=== PATIENT | female | born 1945 | race Caucasian/White ===

== ENCOUNTER → 2017-10-17 | Outpatient (CLI) | payer MEDICARE ==
[~2017-10-17] MED LIST: ALBU0.63 NEB; AMOX1TAB64 PO; ATEN25TA PO; ESCI10TA PO; FAMO40TA4 PO; FLUT12HF IH; FURO20TA3 PO; INSU100V8 SQ; METF850T2 PO; MONT10TA9 PO; OLME1TAB22 PO; OXYC-302 PO; POTA10TA11 PO; REPA2TAB7 PO; SIMV20TA3 PO
== END | disposition home or self-care (01) ==
LOC: CFH 14:47
PROVIDERS: ATTEND Nurse Practitioner Family
DX: I35.8 Other nonrheumatic aortic valve disorders (principal); J96.11 Chronic respiratory failure with hypoxia; I10 Essential (primary) hypertension; E11.9 Type 2 diabetes mellitus without complications
CPT/HCPCS: 93306